=== PATIENT | female | born 1975 | race Caucasian/White ===

== ENCOUNTER → 2021-03-10 09:12 | Outpatient (CLI) | payer OTHER, SELFPAY ==
[2021-03-11 09:07] LABS: Interpretation Negative (Negative)
== END ==
PROVIDERS: Referring Provider Family Medicine; Visit Provider Family Medicine
DX: K29.50 Unspecified chronic gastritis without bleeding (principal)
CPT/HCPCS: 83013

== ENCOUNTER → 2021-05-11 10:55 | Outpatient (CLI) | payer OTHER, SELFPAY ==
--- NOTE | 2021-05-11 | DI.MG.S_ITS ---
BILATERAL DIGITAL SCREENING MAMMOGRAM 3D/2D WITH CAD: 05/11/2021 CLINICAL: Routine screening. Comparison is made to exams dated: 07/16/2019 mammogram, 05/08/2018 mammogram, and 04/29/2017 mammogram - outside location. The tissue of both breasts is heterogeneously dense. This may lower the sensitivity of mammography. Current study was also evaluated with a Computer Aided Detection (CAD) system. No significant masses, calcifications, or other findings are seen in either breast. There has been no significant interval change. IMPRESSION: NEGATIVE There is no mammographic evidence of malignancy. A 1 year screening mammogram is recommended. This exam was interpreted at Station ID: [id number]. NOTE: For mammograms, a report in lay terms will be sent to the patient. Approximately 15% of breast malignancies will not be visualized mammographically. In the management of a palpable breast mass, a negative mammogram must not discourage biopsy of a clinically suspicious lesion. Electronically Signed By: Bebeto [email or web address]:05/11/2021 14:37:30 letter sent: Normal Exam ACR BI-RADS Category 1: Negative [id number]
== END ==
PROVIDERS: Referring Provider Family Medicine; Visit Provider Family Medicine
DX: Z12.31 Encounter for screening mammogram for malignant neoplasm of breast (principal)
CPT/HCPCS: 77063; 77067